=== PATIENT | male | born 1995 | race Caucasian/White ===

== ENCOUNTER 2025-03-02 16:23 | Emergency (ER) | payer BC ==
[2025-03-02] MEDS ORDERED: HYDROcodone/Acetaminophen 5/325 mg Tablet ONE (16:41)
[2025-03-02] MEDS ORDERED: HYDROcodone/Acetaminophen 10/325 mg Tablet ONE (16:42)
[2025-03-02] MEDS ORDERED: Bacitracin 1 PK ONE ×2 (16:55→17:07)
[2025-03-02] MEDS ORDERED: Bacitracin Zinc Ointment 30 gm TUBE TOP SCH (17:45)
[2025-03-02] MEDS ORDERED: Boostrix 0.5 ML (Tdap) VIAL (>/=7 yrs of age) ONE (17:49)
[2025-03-02] MEDS ORDERED: Clindamycin 150 MG CAP ONE (18:34)
== END 2025-03-02 18:35 | disposition home or self-care (01) ==
LOC: CSHERS 16:23
DX: T22.252A Burn of second degree of left shoulder, initial encounter (principal); T31.0 Burns involving less than 10% of body surface; T21.14XA Burn of first degree of lower back, initial encounter; T20.17XA Burn of first degree of neck, initial encounter; T20.15XA Burn of first degree of scalp [any part], initial encounter; Z23 Encounter for immunization; X15.8XXA Contact with other hot household appliances, initial encounter
CPT/HCPCS: 16020; 90471; 90715